=== PATIENT | female | born 1960 | race Caucasian/White ===

== ENCOUNTER → 2020-07-24 | Outpatient (CLI) | payer OTHER ==
[~2020-07-24] MED LIST: ASPIRIN CHEWABL81 MG PO; ASPIRIN EC81 MG PO; ATORVASTATIN CA40 MG PO; BENADRYL25 MG PO; CARAFATE1 GM PO; CETIRIZINE HCL10 MG PO; EPINEPHRIN0.3 MG/0.3 INJ; EPIPEN 2-P0.3 MG/0.3 INJ; LIPITOR40 MG PO; PREDNISONE50 MG PO; PROTONIX 40 MG40 M1 PO; PROTONIX40 MG PO; VENTOLIN HFA 66.7 GM INH; VITAMIN B-12 PO; VITAMIN B-121000 MC3 PO; VITAMIN B12-FO1 EACH PO; VOLTAREN EC 5050 MG PO
== END ==
LOC: RAD 14:18
DX: R20.0 Anesthesia of skin (principal); M54.5 Low back pain; M51.36 Other intervertebral disc degeneration, lumbar region; M25.78 Osteophyte, vertebrae; M47.816 Spondylosis without myelopathy or radiculopathy, lumbar region
CPT/HCPCS: 72100

== ENCOUNTER → 2020-08-28 | Day surgery (SDC) | payer OTHER | END | disposition home or self-care (01) | LOC: OR 10:44 | PROVIDERS: Internal Medicine Gastroenterology | PROC: 0DB78ZX Excision of Stomach, Pylorus, Via Natural or Artificial Opening Endoscopic, Diagnostic (ICD-10-PCS; 2020-08-28) | PROC: 0DB68ZX Excision of Stomach, Via Natural or Artificial Opening Endoscopic, Diagnostic (ICD-10-PCS; 2020-08-28) | PROC: 0DB38ZX Excision of Lower Esophagus, Via Natural or Artificial Opening Endoscopic, Diagnostic (ICD-10-PCS; 2020-08-28) | PROC: 0DB48ZX Excision of Esophagogastric Junction, Via Natural or Artificial Opening Endoscopic, Diagnostic (ICD-10-PCS; principal; 2020-08-28 12:00) | DX: K21.00 Gastro-esophageal reflux disease with esophagitis, without bleeding (principal); K31.9 Disease of stomach and duodenum, unspecified; K25.9 Gastric ulcer, unspecified as acute or chronic, without hemorrhage or perforation; K44.9 Diaphragmatic hernia without obstruction or gangrene; K22.70 Barrett's esophagus without dysplasia; F17.210 Nicotine dependence, cigarettes, uncomplicated; E78.5 Hyperlipidemia, unspecified; J44.9 Chronic obstructive pulmonary disease, unspecified; E78.00 Pure hypercholesterolemia, unspecified; E66.01 Morbid (severe) obesity due to excess calories; Z68.35 Body mass index [BMI] 35.0-35.9, adult; Z79.899 Other long term (current) drug therapy; Z20.822 Contact with and (suspected) exposure to COVID-19 | CPT/HCPCS: J2704; J7040 ==

== ENCOUNTER 2020-09-06 23:05 | Emergency (ER) | payer OTHER ==
[~2020-09-06 23:05] MED LIST changes: -ASPIRIN EC81 MG PO; -BENADRYL25 MG PO; -CETIRIZINE HCL10 MG PO; -EPINEPHRIN0.3 MG/0.3 INJ; -LIPITOR40 MG PO; -PREDNISONE50 MG PO; -PROTONIX 40 MG40 M1 PO; -VITAMIN B-121000 MC3 PO
[2020-09-07] MEDS ORDERED: BENADRYL25 MG PO (02:23)
[2020-09-07] MEDS ORDERED: PREDNISONE50 MG PO (02:23)
[2020-09-25] MEDS ORDERED: LIPITOR40 MG PO (11:26)
[2020-09-25] MEDS ORDERED: PROTONIX 40 MG40 M1 PO (11:27)
[2020-09-25] MEDS ORDERED: CETIRIZINE HCL10 MG PO (11:27)
== END 2020-09-07 02:57 | disposition home or self-care (01) ==
LOC: ER1 23:05
DX: L50.0 Allergic urticaria (principal); J44.9 Chronic obstructive pulmonary disease, unspecified; I10 Essential (primary) hypertension; F17.200 Nicotine dependence, unspecified, uncomplicated
CPT/HCPCS: 99282

== ENCOUNTER 2020-09-25 13:48 | Observation (INO) | payer OTHER ==
[~2020-09-25] VITALS: Ht 167.6 cm; Wt 90.3 kg
[~2020-09-25 13:48] MED LIST changes: +BENADRYL25 MG PO; +CETIRIZINE HCL10 MG PO; +LIPITOR40 MG PO; +PREDNISONE50 MG PO; +PROTONIX 40 MG40 M1 PO
[2020-09-25 14:42] LABS: HEMOGLOBIN 14.5 gm/dl (12.3-15.3); RED BLOOD COUNT 4.59 M/UL (4.00-5.10); WHITE BLOOD COUNT 5.7 K/UL (4.5-11.0)
[2020-09-25 15:03] LABS: BUN/CREATININE RATIO 16 (0-10)
[2020-09-25] MEDS ORDERED: ASPIRIN EC81 MG PO (15:48)
[2020-09-25] MEDS ORDERED: EPINEPHRIN0.3 MG/0.3 INJ (15:48)
[2020-09-25] MEDS ORDERED: VITAMIN B-121000 MC3 PO (16:45)
[2020-09-26 02:05] LABS: HEMOGLOBIN 13.3 gm/dl (12.3-15.3); RED BLOOD COUNT 4.2 M/UL (4.00-5.10); WHITE BLOOD COUNT 5.2 K/UL (4.5-11.0)
[2020-09-26 02:43] LABS: BUN/CREATININE RATIO 17 (0-10)
[2020-09-26] MEDS ORDERED: ASPIRIN EC81 MG PO (09:39)
== END 2020-09-26 14:24 | disposition home or self-care (01) ==
LOC: ER1 13:48 → CDU 15:40 → MED SURG 4 19:15
PROVIDERS: Physician Assistant; Preventive Medicine Occupational Medicine; ADMIT Family Medicine
DX: R07.89 Other chest pain (principal); J44.9 Chronic obstructive pulmonary disease, unspecified; K25.9 Gastric ulcer, unspecified as acute or chronic, without hemorrhage or perforation; K44.9 Diaphragmatic hernia without obstruction or gangrene; K21.00 Gastro-esophageal reflux disease with esophagitis, without bleeding; K22.70 Barrett's esophagus without dysplasia; F17.210 Nicotine dependence, cigarettes, uncomplicated; Z20.822 Contact with and (suspected) exposure to COVID-19; Z86.010 Personal history of colon polyps; Z79.82 Long term (current) use of aspirin; Z79.899 Other long term (current) drug therapy
CPT/HCPCS: ECHO; 36415; 71045; 80048; 80053; 82550; 82553; 83690; 83874; 83880; 84484; 85025; 86140; 93005; 93306; 99285; G0378; J7030; U0002

== ENCOUNTER 2021-01-18 11:02 | Emergency (ER) | payer OTHER ==
[~2021-01-18 11:02] MED LIST changes: +ASPIRIN EC81 MG PO; +EPINEPHRIN0.3 MG/0.3 INJ; +VITAMIN B-121000 MC3 PO
[2021-01-18 12:09] LABS: HEMOGLOBIN 14.8 gm/dl (12.3-15.3); RED BLOOD COUNT 4.5 M/UL (4.00-5.10); WHITE BLOOD COUNT 5.2 K/UL (4.5-11.0)
[2021-01-18 12:31] LABS: BUN/CREATININE RATIO 14 (0-10)
== END 2021-01-18 14:30 | disposition home or self-care (01) ==
LOC: ER1 11:02
PROVIDERS: Physician Assistant
DX: K59.00 Constipation, unspecified (principal); J44.9 Chronic obstructive pulmonary disease, unspecified; E78.5 Hyperlipidemia, unspecified; F17.210 Nicotine dependence, cigarettes, uncomplicated; Z90.49 Acquired absence of other specified parts of digestive tract
CPT/HCPCS: 80053; 81001; 82150; 82550; 82553; 83690; 83874; 84484; 85025; 93005; 99284; Q9967

== ENCOUNTER 2021-05-08 12:21 | Emergency (ER) | payer OTHER ==
[2021-05-08] MEDS ORDERED: CYCLOBENZAPRINE5 MG PO (14:00)
[2021-05-08] MEDS ORDERED: MOBIC15 MG PO (14:04)
== END 2021-05-08 14:45 | disposition home or self-care (01) ==
LOC: ER1 12:21
DX: S46.912A Strain of unspecified muscle, fascia and tendon at shoulder and upper arm level, left arm, initial encounter (principal); S46.911A Strain of unspecified muscle, fascia and tendon at shoulder and upper arm level, right arm, initial encounter; S43.402A Unspecified sprain of left shoulder joint, initial encounter; S43.401A Unspecified sprain of right shoulder joint, initial encounter; M77.8 Other enthesopathies, not elsewhere classified; M50.31 Other cervical disc degeneration, high cervical region; R20.0 Anesthesia of skin; F17.200 Nicotine dependence, unspecified, uncomplicated; K21.9 Gastro-esophageal reflux disease without esophagitis; X58.XXXA Exposure to other specified factors, initial encounter; Y92.89 Other specified places as the place of occurrence of the external cause; Y99.0 Civilian activity done for income or pay
CPT/HCPCS: 72040; 73030; 73080; 99283

== ENCOUNTER → 2021-08-05 | Outpatient (CLI) | payer OTHER ==
[~2021-08-05] MED LIST changes: +CYCLOBENZAPRINE5 MG PO; +MOBIC15 MG PO
== END ==
LOC: EMI 10:29
DX: M25.511 Pain in right shoulder (principal); M25.512 Pain in left shoulder; M75.112 Incomplete rotator cuff tear or rupture of left shoulder, not specified as traumatic; M75.101 Unspecified rotator cuff tear or rupture of right shoulder, not specified as traumatic
CPT/HCPCS: 73221

== ENCOUNTER → 2021-09-30 | Outpatient (CLI) | payer OTHER | LOC: EMI 14:45 | DX: M47.22 Other spondylosis with radiculopathy, cervical region (principal); M48.02 Spinal stenosis, cervical region | CPT/HCPCS: 72141 ==